=== PATIENT | male | born 1970 | race Caucasian/White ===

== ENCOUNTER 2024-06-11 20:59 | Emergency (ER) | payer BC, SELFPAY ==
[2024-06-11] VITALS (20 sets, daily range): BP systolic 130–194; BP diastolic 79–118; PULSE 70–98; RESP 12–28; TEMP 36.7; O2SAT 95–100; BMI 24.3
--- NOTE | 2024-06-11 21:08 | RAD_ITS ---
EXAM: Four views of the left shoulder. CLINICAL HISTORY: Dislocation. COMPARISON: None. TECHNIQUE: Four views of the left shoulder FINDINGS: There is an anterior inferior dislocation of the humeral head with respect to the glenoid fossa. There is irregularity within the glenoid fossa as well as humeral head suggestive of Bankart/Hill-Sachs lesion. RAD/Shoulder min 2 Views IMPRESSION: Anterior and inferior dislocation of the humeral head with respect to the gleno id fossa. Recommend post reduction imaging. Reading Location: [id number]
[2024-06-11] MEDS: 0.9% Normal Saline (1000mL) 1,000 ML 999 ML IV (21:17)
[2024-06-11] MEDS: Morphine 4 MG/ML Syringe IV (21:18)
[2024-06-11] MEDS: Ondansetron 4 MG/2 ML Vial IV (21:18)
[2024-06-11] MEDS: Propofol 200 MG/20 ML Vial IV BOLUS ×2 (22:12→23:43)
--- NOTE | 2024-06-11 23:03 | RAD_ITS ---
EXAM: Left shoulder x-ray. CLINICAL HISTORY: Left shoulder dislocation. COMPARISON: Left shoulder x-ray performed on the same date. TECHNIQUE: Two views of the left shoulder. FINDINGS: Interval reduction of the left shoulder dislocation. Anatomic alignment. RAD/Shoulder min 2 Views IMPRESSION: Interval reduction of previously described left shoulder anterior inferior disl ocation. Anatomic alignment. If patient's pain continues, consider MRI shoulder to evaluate for Bankart/Hill-Sachs lesion. Reading Location: [id number]
--- NOTE | 2024-06-11 23:53 | EDS_ITS ---
HPI History of Present Illness Chief Complaint: Upper Extremity Injury Narrative Narrative: Patient is a 54-year-old male who presents to the emerged department via EMS with chief complaint of left shoulder pain. According the patient he states that he has had some shoulder troubles in the past and has been seen by a orthopedic surgeon at [facility]. He states that tonight he was changing his son and he noted that he was going to sneeze so therefore he reached his shoulder out to the side to hold onto something sneezed and developed severe pain. He states that he laid down hoping that things would improve however he had no improvement and was able to get up therefore he called EMS to have him brought here for further evaluation management. Per EMS they gave him 100 mcg of intramuscular fentanyl patient states that he is still in severe pain when he arrives here patient states that he is never had a dislocation in the past. PFSH PFSH Home Medications ?Medication ?Instructions ?Recorded ?Last Taken ?Type ondansetron 4 mg disintegrating 4 mg PO Q6H PRN nausea and 06/12/24 Unknown Rx tablet vomiting #20 tabs oxycodone-acetaminophen 5 mg-325 1 tab PO Q6H PRN pain 2 days #8 06/12/24 Unknown Rx mg tablet (Endocet) tabs Allergy/AdvReac Type Severity Reaction Status Date / Time No Known Allergies Allergy Verified 06/11/24 21:05 Social History Smoking Status: Never smoker ROS ROS ED ROS Narrative Neurological: Denies numbness, tingling, weakness Musculoskeletal: Complains of left shoulder pain as noted above Skin: Denies rashes or lesions EXAM Physical Exam Narrative Exam Narrative: General: Patient appears to be uncomfortable secondary to left shoulder pain Head: Atraumatic, normocephalic Eyes: PERRL bilaterally, EOMI bilateral, no conjunctival injection noted Neck: Soft and supple, trach midline Cardiovascular: Regular rate and rhythm no murmurs gallops or rubs noted Respiratory: Clear to auscultation bilaterally Abdomen: Soft, nondistended, no tenderness palpation Musculoskeletal: Patient has pain with attempted range of motion of his left shoulder there is obvious deformity noted Extremities: Radial pulses +2/4 in the bilateral extremities, no pedal edema neuroexam Neurological: Patient following commands knew that he was at [facility] year is 2024. Sensation grossly tact the median ulnar radial nerve distribution as well as axillary nerve distribution bilaterally Skin: Warm, dry, tact no rashes or lesions noted Const Vital Signs: 06/11/24 21:02 06/11/24 22:00 06/11/24 22:05 Temperature 98.1 F Temperature Source Oral Pulse Rate 98 83 73 Pulse Rate [1 (Initial Baseline)] Pulse Rate [2] Pulse Rate [3] Pulse Rate [4] Pulse Rate [5] Pulse Rate [6] Pulse Rate [7] Respiratory Rate 22 H 19 H 15 Respiratory Rate [1 (Initial Baseline)] Respiratory Rate [2] Respiratory Rate [3] Respiratory Rate [4] Respiratory Rate [5] Respiratory Rate [6] Respiratory Rate [7] Blood Pressure 194/79 H 160/108 H Blood Pressure [4] Blood Pressure [6] Blood Pressure [7] Blood Pressure Mean 117 Baseline BP Pulse Ox 95 96 99 Oxygen Delivery Method Room Air Nasal Cannula Oxygen Delivery Method [1 (Initial Baseline)] Oxygen Delivery Method [2] Oxygen Delivery Method [3] Oxygen Delivery Method [4] Oxygen Delivery Method [5] Oxygen Delivery Method [6] Oxygen Delivery Method [7] Oxygen Flow Rate (L/min) 2 Oxygen Flow Rate (L/min) [4] Oxygen Flow Rate (L/min) [5] Oxygen Flow Rate (L/min) [6] Oxygen Flow Rate (L/min) [7] EtCo2 (Normal 35-45 , high quality CPR 10-20 & ROSC>/=40mmHg 33 EtCo2 (Normal 35-45 , high quality CPR 10-20 & ROSC>/=40mmHg [1 (Initial Baseline)] EtCo2 (Normal 35-45 , high quality CPR 10-20 & ROSC>/=40mmHg [2] EtCo2 (Normal 35-45 , high quality CPR 10-20 & ROSC>/=40mmHg [3] EtCo2 (Normal 35-45 , high quality CPR 10-20 & ROSC>/=40mmHg [4] EtCo2 (Normal 35-45 , high quality CPR 10-20 & ROSC>/=40mmHg [5] EtCo2 (Normal 35-45 , high quality CPR 10-20 & ROSC>/=40mmHg [6] EtCo2 (Normal 35-45 , high quality CPR 10-20 & ROSC>/=40mmHg [7] 06/11/24 22:10 06/11/24 22:15 06/11/24 22:23 Temperature Temperature Source Pulse Rate 76 74 Pulse Rate [1 (Initial Baseline)] Pulse Rate [2] Pulse Rate [3] Pulse Rate [4] Pulse Rate [5] Pulse Rate [6] Pulse Rate [7] Respiratory Rate 17 19 H Respiratory Rate [1 (Initial Baseline)] Respiratory Rate [2] Respiratory Rate [3] Respiratory Rate [4] Respiratory Rate [5] Respiratory Rate [6] Respiratory Rate [7] Blood Pressure 174/103 H 165/104 H Blood Pressure [4] Blood Pressure [6] Blood Pressure [7] Blood Pressure Mean Baseline BP Pulse Ox 100 97 Oxygen Delivery Method Nasal Cannula Room Air Oxygen Delivery Method [1 (Initial Baseline)] Oxygen Delivery Method [2] Oxygen Delivery Method [3] Oxygen Delivery Method [4] Oxygen Delivery Method [5] Oxygen Delivery Method [6] Oxygen Delivery Method [7] Oxygen Flow Rate (L/min) 2 Oxygen Flow Rate (L/min) [4] Oxygen Flow Rate (L/min) [5] Oxygen Flow Rate (L/min) [6] Oxygen Flow Rate (L/min) [7] EtCo2 (Normal 35-45 , high quality CPR 10-20 & ROSC>/=40mmHg 30 33 39 EtCo2 (Normal 35-45 , high quality CPR 10-20 & ROSC>/=40mmHg [1 (Initial Baseline)] EtCo2 (Normal 35-45 , high quality CPR 10-20 & ROSC>/=40mmHg [2] EtCo2 (Normal 35-45 , high quality CPR 10-20 & ROSC>/=40mmHg [3] EtCo2 (Normal 35-45 , high quality CPR 10-20 & ROSC>/=40mmHg [4] EtCo2 (Normal 35-45 , high quality CPR 10-20 & ROSC>/=40mmHg [5] EtCo2 (Normal 35-45 , high quality CPR 10-20 & ROSC>/=40mmHg [6] EtCo2 (Normal 35-45 , high quality CPR 10-20 & ROSC>/=40mmHg [7] 06/11/24 22:24 06/11/24 23:00 06/11/24 23:07 Temperature Temperature Source Pulse Rate 83 Pulse Rate [1 (Initial Baseline)] 78 Pulse Rate [2] 72 Pulse Rate [3] 75 Pulse Rate [4] 84 Pulse Rate [5] 71 Pulse Rate [6] 75 Pulse Rate [7] 74 Respiratory Rate 13 Respiratory Rate [1 (Initial Baseline)] 15 Respiratory Rate [2] 15 Respiratory Rate [3] 19 H Respiratory Rate [4] 15 Respiratory Rate [5] 14 Respiratory Rate [6] 16 Respiratory Rate [7] 23 H Blood Pressure 186/86 H 134/109 H Blood Pressure [4] 177/118 H Blood Pressure [6] 130/117 H Blood Pressure [7] 134/109 H Blood Pressure Mean 117 Baseline BP 186/86 Pulse Ox 97 98 Oxygen Delivery Method Room Air Oxygen Delivery Method [1 (Initial Baseline)] Room Air Oxygen Delivery Method [2] Room Air Oxygen Delivery Method [3] Room Air Oxygen Delivery Method [4] Nasal Cannula Oxygen Delivery Method [5] Room Air Oxygen Delivery Method [6] Nasal Cannula Oxygen Delivery Method [7] Nasal Cannula Oxygen Flow Rate (L/min) Oxygen Flow Rate (L/min) [4] 2 Oxygen Flow Rate (L/min) [5] 2 Oxygen Flow Rate (L/min) [6] 2 Oxygen Flow Rate (L/min) [7] 2 EtCo2 (Normal 35-45 , high quality CPR 10-20 & ROSC>/=40mmHg 39 EtCo2 (Normal 35-45 , high quality CPR 10-20 & ROSC>/=40mmHg [1 (Initial Baseline)] 34 EtCo2 (Normal 35-45 , high quality CPR 10-20 & ROSC>/=40mmHg [2] 35 EtCo2 (Normal 35-45 , high quality CPR 10-20 & ROSC>/=40mmHg [3] 35 EtCo2 (Normal 35-45 , high quality CPR 10-20 & ROSC>/=40mmHg [4] 39 EtCo2 (Normal 35-45 , high quality CPR 10-20 & ROSC>/=40mmHg [5] 35 EtCo2 (Normal 35-45 , high quality CPR 10-20 & ROSC>/=40mmHg [6] 37 EtCo2 (Normal 35-45 , high quality CPR 10-20 & ROSC>/=40mmHg [7] 36 MDM MDM MDM Narrative Medical decision making narrative: Patient is a 54-year-old male who presented to the emergency department the chief complaint of shoulder dislocation on the left side. On the differential diagnose includes Melamin to shoulder dislocation, Hill-Sachs deformity, Bankart lesion. Once workup is obtained reviewed he will be reevaluated. Patient's left shoulder x-ray reviewed by myself and by radiology which showed an anterior inferior dislocation of the humeral head with respect to the glenoid fossa. 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 Indications, risks, and benefits were explained at length. Procedure summary: Patient remained on equipment monitor phototypesetting and end-tidal CO2 was applied to the patient as well as oxygen. Patient was sedated with her to 170 mg of propofol. Patient had no complications tolerated procedure well. Patient's shoulder did not appear to reduce therefore post reduction films were obtained. Postreduction x-ray obtained reviewed showed interval reduction of the previously described left shoulder anterior-inferior dislocation anatomic alignment noted. If patient's pain continues consider MRI for Bankart/Hill- Sachs lesion. Patient was observed here in the emergency department and tolerated oral intake without any vomiting. He was advised to not make any critical life change in decisions over the next 12 to 24 hours as he received propofol. Patient will be given a prescription for Zofran and Endocet. He was advised to not operate anything under the influence of this and he is to use this for severe pain otherwise he is to rotate ibuprofen and Tylenol [id number] for mild to moderate pain. 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 Patient would like to go home at this point time he is agreeable spinal cord concerns answered he is discharged home in stable condition. Radiography Diagnostic Testing: Clinical Impression(s) from Imaging Studies Shoulder X-Ray 06/11/24 21:08 IMPRESSION: Anterior and inferior dislocation of the humeral head with respect to the glenoid fossa. Recommend post reduction imaging. Reading Location: [id number] Shoulder X-Ray 06/11/24 23:03 IMPRESSION: Interval reduction of previously described left shoulder anterior inferior dislocation. Anatomic alignment. If patient's pain continues, consider MRI shoulder to evaluate for Bankart/Hill-Sachs lesion. Reading Location: [id number] Discharge Plan Triage Chief Complaint: Upper Extremity Injury ED Provider: Manuel Hernadez Dx/Rx/DC Orders Clinical Impression: Anterior dislocation of left shoulder Prescriptions: New ondansetron 4 mg tablet,disintegrating 4 mg PO Q6H PRN (Reason: nausea and vomiting) Qty: 20 0RF oxycodone-acetaminophen [Endocet] 5-325 mg tablet 1 tab PO Q6H PRN (Reason: pain) 2 Days Qty: 8 0RF Primary Care Provider: Care Physician,No Primary Referrals: Michele Carias MD [Med Staff - Transfusion Nurse] - Care Physician,No Primary [Primary Care Provider] - Activity Restrictions/Additional Instructions: Follow-up with your orthopedic surgeon in outpatient setting give them a call tomorrow for an appointment. Use the prescriptions that were provided to you for severe pain otherwise rotate Tylenol and ibuprofen [id number] for mild to moderate pain. When you do this you can take something every 3 hours for the Tylenol and ibuprofen when alternating the 2. Max dose of Tylenol is 4000 mg max dose of ibuprofen 3200 mg. Do not operate anything under the influence of the Endocet/narcotic. Return with worsening symptoms or concerns. Ensure you are staying in the sling until cleared by your orthopedic surgeon. Do not make any life altering decisions in the next 12 to 24 hours since she received propofol here in the emergency department for your procedural sedation. Print Language: Sami Disposition Disposition: Home, Self Care
[2024-06-12] VITALS: BP 154/100; PULSE 81; RESP 18; O2SAT 99
[2024-06-12] MEDS: Ondansetron ODT 4 MG Tablet PO (00:20)
[2024-06-12] MEDS: HYDROcodone Bitartrate/Apap 5/325 Tablet PO (00:20)
== END 2024-06-12 00:53 | disposition home or self-care (01) ==
PROVIDERS: Emergency Provider Emergency Medicine; Visit Provider Emergency Medicine
DX: S43.015A Anterior dislocation of left humerus, initial encounter (principal); X58.XXXA Exposure to other specified factors, initial encounter; Y93.F9 Activity, other caregiving
CPT/HCPCS: 23650; 73030; 96361; 96374; 96375; 99285; A4216; J2405